=== PATIENT | male | born 1970 | race Caucasian/White ===

== ENCOUNTER 2016-11-24 03:50 | Inpatient (IN) | payer MEDICAID, OTHER ==
--- NOTE | 2016-11-24 04:22 | ED ---
Psych HPI - General Source: patient, police, EMS Mode of arrival: EMS - History of Present Illness MD Complaint: suicidal ideation, other -: hour(s) Associated Psychiatric Symptoms: depression, suicidal ideation <Rashawn Caraballo - Last Filed: 11/24/16 04:19> <Yadi Engel - Last Filed: 11/24/16 11:08> - General Chief Complaint: Psychiatric Symptoms Stated Complaint: Mental Health Time Seen by Provider: 11/24/16 04:01 - History of Present Illness Initial Comments: This patient is a 46-year-old man brought in in police custody. Most of the history is from the officers as the patient is declining to provide history. Police were called to the scene, reportedly by the patient's who told them that he had taken some pills tonight. The patient did report being depressed and having some suicidal ideation. The patient did state that he hopes the police would do it for him. He is otherwise not providing any history (Rashawn Caraballo) Review of Systems ROS Other: All systems not noted in ROS Statement are negative. Limitations: ROS unobtainable due to patients medical condition <Rashawn Caraballo - Last Filed: 11/24/16 04:19> ROS Other: All systems not noted in ROS Statement are negative. <Yadi Engel - Last Filed: 11/24/16 11:08> ROS Statement: Those systems with pertinent positive or pertinent negative responses have been documented in the HPI. Past Medical History History of Any Multi-Drug Resistant Organisms: None Reported Past Psychological History: Depression Smoking Status: Current every day smoker Past Alcohol Use History: Daily Past Drug Use History: Methamphetamine <Rashawn Caraballo - Last Filed: 11/24/16 04:19> General Exam General appearance: alert, in no apparent distress Head exam: Present: atraumatic, normocephalic Eye exam: Present: normal appearance. Absent: scleral icterus, conjunctival injection Respiratory exam: Present: normal lung sounds bilaterally. Absent: respiratory distress, wheezes, rales, rhonchi, stridor Cardiovascular Exam: Present: regular rate, normal rhythm, normal heart sounds. Absent: systolic murmur, diastolic murmur, rubs, gallop GI/Abdominal exam: Present: soft. Absent: distended, tenderness, guarding, rebound Extremities exam: Present: normal inspection, normal capillary refill. Absent: pedal edema, calf tenderness Back exam: Present: normal inspection. Absent: CVA tenderness (R), CVA tenderness (L) Neurological exam: Present: alert. Absent: motor sensory deficit Skin exam: Present: warm, dry, intact, normal color. Absent: rash <Rashawn Caraballo - Last Filed: 11/24/16 04:19> Course <Rashawn Caraballo - Last Filed: 11/24/16 04:19> <Yadi Engel - Last Filed: 11/24/16 11:08> Vital Signs 11/24/16 03:59 Temperature 97 F L Pulse Rate 120 H Respiratory 20 Rate Blood Pressure 160/109 O2 Sat by Pulse 98 Oximetry At term 10 AM he was brought to my attention that patient needs side for the admission and has sort was done in the ER after that patient be transferred to the inpatient psych facility at at our hospital (Yadi Engel) Medical Decision Making - Lab Data Result diagrams: 11/24/16 04:45 11/24/16 04:45 <Yadi Engel - Last Filed: 11/24/16 11:08> - Lab Data Lab Results 11/24/16 11/24/16 11/24/16 Range/Units 04:45 04:45 06:05 WBC 7.9 (3.8-10.6) k/uL RBC 4.53 (4.30-5.90) m/uL Hgb 14.7 (13.0-17.5) gm/dL Hct 44.7 (39.0-53.0) % MCV 98.8 (80.0-100.0) fL MCH 32.4 (25.0-35.0) pg MCHC 32.8 (31.0-37.0) g/dL RDW 13.1 (11.5-15.5) % Plt Count 331 (150-450) k/uL Neutrophils % 54 % Lymphocytes % 32 % Monocytes % 5 % Eosinophils % 5 % Basophils % 1 % Neutrophils # 4.3 (1.3-7.7) k/uL Lymphocytes # 2.5 (1.0-4.8) k/uL Monocytes # 0.4 (0-1.0) k/uL Eosinophils # 0.4 (0-0.7) k/uL Basophils # 0.1 (0-0.2) k/uL Sodium 142 (137-145) mmol/L Potassium 4.0 (3.5-5.1) mmol/L Chloride 109 H (98-107) mmol/L Carbon Dioxide 17 L (22-30) mmol/L Anion Gap 16 mmol/L BUN 14 (9-20) mg/dL Creatinine 1.20 (0.66-1.25) mg/dL Est GFR (MDRD) Af Amer >60 (>60 ml/min/1.73 sqM) Est GFR (MDRD) Non-Af >60 (>60 ml/min/1.73 sqM) Glucose 74 (74-99) mg/dL Calcium 9.4 (8.4-10.2) mg/dL Total Bilirubin 0.4 (0.2-1.3) mg/dL AST 34 (17-59) U/L ALT 35 (21-72) U/L Alkaline Phosphatase 66 (38-126) U/L Total Protein 6.9 (6.3-8.2) g/dL Albumin 4.1 (3.5-5.0) g/dL Salicylates <1.0 mg/dL Urine Opiates Screen Not Detected (NotDetected) Ur Oxycodone Screen Not Detected (NotDetected) Urine Methadone Screen Not Detected (NotDetected) Ur Propoxyphene Screen Not Detected (NotDetected) Acetaminophen <10.0 ug/mL Ur Barbiturates Screen Not Detected (NotDetected) U Tricyclic Antidepress Not Detected (NotDetected) Ur Phencyclidine Scrn Not Detected (NotDetected) Ur Amphetamines Screen Not Detected (NotDetected) U Methamphetamines Scrn Not Detected (NotDetected) U Benzodiazepines Scrn Not Detected (NotDetected) Urine Cocaine Screen Detected H (NotDetected) U Marijuana (THC) Screen Detected H (NotDetected) Serum Alcohol 146 mg/dL Disposition <Rashawn Caraballo - Last Filed: 11/24/16 04:19> <Yadi Engel - Last Filed: 11/24/16 11:08> Clinical Impression: Suicidal ideation, Attempted suicide Disposition: TRANSFER TO PSYCH HOSP/UNIT Condition: Fair
[2016-11-24 05:12] LABS: ALT 35 U/L (21-72); AST 34 U/L (17-59); Acetaminophen <10.0 ug/mL; Alkaline Phosphatase 66 U/L (38-126); Anion Gap 16 mmol/L; Blood Urea Nitrogen 14 mg/dL (9-20); Calcium 9.4 mg/dL (8.4-10.2); Carbon Dioxide 17 mmol/L (22-30); Chloride 109 mmol/L (98-107); Glucose 74 mg/dL (74-99); Non-African American GFR(MDRD) >60 (>60 ml/min/1.73 sqM); Salicylate <1.0 mg/dL; Sodium 142 mmol/L (137-145); Total Bilirubin 0.4 mg/dL (0.2-1.3); Total Protein 6.9 g/dL (6.3-8.2)
[2016-11-24 05:14] LABS: Alcohol 146 mg/dL
[2016-11-24 05:35] LABS: Basophils # (A) 0.1 k/uL (0-0.2); Basophils % (A) 1 %; CH 31.7; CHCM 32.2; Eosinophils # (A) 0.4 k/uL (0-0.7); Eosinophils % (A) 5 %; HCT 44.7 % (39.0-53.0); HDW 2.26; HGB 14.7 gm/dL (13.0-17.5); Luc # (Auto) 0.26; Luc % (Auto) 3; Lymphocytes # (A) 2.5 k/uL (1.0-4.8); Lymphocytes % (A) 32 %; MCH 32.4 pg (25.0-35.0); MCHC 32.8 g/dL (31.0-37.0); MCV 98.8 fL (80.0-100.0); Mean Platelet Volume 7.4; Monocytes # (A) 0.4 k/uL (0-1.0); Monocytes % (A) 5 %; Neutrophils # (A) 4.3 k/uL (1.3-7.7); Neutrophils % (A) 54 %; RBC 4.53 m/uL (4.30-5.90); RDW 13.1 % (11.5-15.5); WBC 7.9 k/uL (3.8-10.6); WBC (Perox) 8.11
[2016-11-24] MEDS ORDERED: MAG HYDROX/AL HYDROX/SIMETH 30 ML CUP PO PRN (11:39)
[2016-11-24] MEDS ORDERED: ACETAMINOPHEN TAB 325 MG TAB PO PRN (11:39)
[2016-11-24] MEDS ORDERED: MAGNESIUM HYDROXIDE 2,400 MG/10 ML CUP PO PRN (11:39)
[2016-11-24] MEDS ORDERED: ZIPRASIDONE 20 MG VIAL IM PRN (11:39)
[2016-11-24] MEDS ORDERED: LORazepam 2 MG/ML SYRINGE IM PRN (11:41)
[2016-11-24 11:50] LABS: Appearance,Urine Clear (Clear); Bilirubin,Urine Negative (Negative); Glucose,Urine (UA) Negative (Negative); Ketones,Urine Negative (Negative); Leukocyte Esterase,Urine Negative (Negative); Nitrite,Urine Negative (Negative); Protein,Urine Negative (Negative); Specific Gravity,Urine 1.002 (1.001-1.035); UA Billing (MACRO vs. MICRO) CHEM; Urobilinogen,Urine <2.0 mg/dL (<2.0)
[2016-11-24] MEDS: NICOTINE 14MG/24HR PATCH TRANSDERM SCH (12:12)
[2016-11-24] MEDS: LORazepam 1 MG TAB PO PRN (12:12)
[2016-11-25] MEDS: NICOTINE 14MG/24HR PATCH TRANSDERM SCH (09:27)
[2016-11-25] MEDS: LORazepam 1 MG TAB PO PRN (09:27)
[2016-11-25] MEDS: buPROPion SR 100 MG TABLET.ER PO SCH (10:21)
--- NOTE | 2016-11-25 14:15 | P.CONS ---
History of Present Illness - Reason for Consult Consult date: 11/25/16 medical management - History of Present Illness This is a 46-year-old male. He does not have a primary care physician. He does not have a past medical history other than exploratory laparotomy that was done with appendectomy, tobacco use and dependence, alcohol abuse, marijuana and cocaine abuse. Patient states he has been suicidal and took a bunch of pills he wasn't sure what they were but thought they were ALLERGY pills and aspirin. His daughter was there and called 911 and he was brought into [facility] emergency center for evaluation. He states he has been depressed because of drugs, alcohol and poor decisions that he's made. He apparently is drinking 8-10 beers every day and has been doing this for at least a couple years. He states he is also using marijuana and cocaine on a daily basis. Urine drug screen was positive for cocaine and marijuana. Serum alcohol level was 146. Acetaminophen less than 10 and salicylate level less than 1. TSH 0.892. Patient has been admitted to the mental health unit. Patient is complaining of skin irritation on his chest abdomen and upper back which is exacerbated when he sweats a lot. Review of Systems All systems: negative Constitutional: Denies chills, Denies fever Eyes: denies blurred vision, denies pain Ears, nose, mouth and throat: Denies headache, Denies sore throat Cardiovascular: Denies chest pain, Denies shortness of breath Respiratory: Denies cough Gastrointestinal: Denies abdominal pain, Denies diarrhea, Denies nausea, Denies vomiting Musculoskeletal: Denies myalgias Integumentary: Reports rash, Denies pruritus Neurological: Denies numbness, Denies weakness Psychiatric: Reports depression, Reports hopelessness, Reports suicidal ideation , Denies anxiety Endocrine: Denies fatigue, Denies weight change Past Medical History History of Any Multi-Drug Resistant Organisms: None Reported Past Surgical History: Appendectomy Additional Past Surgical History / Comment(s): expiratory laparotomy Past Psychological History: Depression Smoking Status: Current every day smoker Past Alcohol Use History: Daily Additional Past Alcohol Use History / Comment(s): Patient is a smoker one pack per day for 20 years. He drinks alcohol 8-10 beers per day for last couple years. He uses marijuana and cocaine on a daily basis. He is and has 2 children with no major medical problems. Past Drug Use History: Methamphetamine - Past Family History Father Additional Family Medical History / Comment(s): Father in his 50s from suicide. Mother Additional Family Medical History / Comment(s): mother is alive at age 72 and is residing in an extended care facility. He does not know her medical problems. Brother(s) Additional Family Medical History / Comment(s): Patient had 1 brother that from a motor vehicle accident. Patient has 2 sisters with no major medical problems. Medications and Allergies Home Medications Medication Instructions Recorded Confirmed Type No Known Home Medications [No 11/24/16 11/24/16 History Known Home Medications] Allergies Allergy/AdvReac Type Severity Reaction Status Date / Time No Known Allergies Allergy Unverified 11/24/16 11:29 Physical Exam Vitals: Vital Signs Temp Pulse Resp BP 11/25/16 06:32 98.4 F 73 16 136/72 Gen: This is a 46-year-old male. He is a disheveled appearance and cooperative. HEENT: Head is atraumatic, normocephalic. Pupils equal, round. Sclerae is anicteric. NECK: Supple. No JVD. No lymphadenopathy. No thyromegaly. LUNGS: Clear to auscultation. No wheezes or rhonchi. No intercostal retractions. HEART: Regular rate and rhythm. No murmur. ABDOMEN: Soft. Bowel sounds are present. No masses. No tenderness. EXTREMITIES: No pedal edema. No calf tenderness. SKIN: patchy redness noted over his chest, abdomen and upper back. NEUROLOGICAL: Patient is awake, alert and oriented x3. Cranial nerves 2 through 12 are grossly intact. Results CBC & Chem 7: 11/24/16 04:45 11/24/16 04:45 Assessment and Plan Plan: 1. Depression with suicidal ideation. Patient admitted to the mental health unit. Continue current plan of care. 2. Alcohol abuse. Continue as in #1. Continue Ativan protocol. 3. Polysubstance abuse with marijuana and cocaine. Continue as in #1. 4. Tobacco use and dependence. Continue nicotine patch. Impression and plan of care have been directed as dictated by the signing physician. Olivia Birmingham nurse practitioner acting as scribe for signing physician. Time with Patient: Greater than 30
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
[2016-11-26] MEDS: NICOTINE 14MG/24HR PATCH TRANSDERM SCH (08:50)
[2016-11-26] MEDS: buPROPion SR 100 MG TABLET.ER PO SCH (08:50)
--- NOTE | 2016-11-26 11:41 | P.PN ---
Progress Note - Text Interval history: The patient is found in the hallway he follows me to an interview room. He was admitted over the weekend for acute symptoms of anxiety and depression.Patient is still feeling guilty regarding past mistakes and his extensive history of SA ,he stated that he has been not honest with regarding his cocaine use ,patient is reluctant to tell about it "She is stressed out by my daughter problem ,I do not want her to be upset",patient is still endorsing some alcohol withdrawal symptoms:tremors and sweating,felt restless last night and had Ativan .He started to participate in groups and more visible in milieu CIWA :3 ,Vitals :stable Mental status exam: The patient's a thin male he seated calmly he is dressed in his own clothing. Unkept ,disheveled Eye contact is appropriate. He reports a depressed and anxious mood affect is mildly anxious. He is cooperative. He reports some hopelessness thinking ,denies suicidal or homicidal ideation intent or plan. He feels safe here in the hospital. He is endorsing no auditory or visual hallucinations. He endorses suspicious thoughts that someone will tell his about "MY PAST MISTAKES" Insight and judgment limited. He demonstrates no verbal or physical aggressiveness. No tremor is noted no abnormal involuntary movements observed. Affect is bland throughout the session. Plan: The patient will be continued on his current psychotropic medications , will change Seroquel XR to regular form ,patient does not have insurance. We will monitor him for safety and for alcohol withdrawal symptoms. He is encouraged participate in groups. We discussed having him participate in inpatient chemical dependency treatment but he is reluctant t
[2016-11-26] MEDS ORDERED: QUEtiapine 100 MG TAB PO SCH (21:00)
[2016-11-27] MEDS: buPROPion SR 100 MG TABLET.ER PO SCH (08:32)
[2016-11-27] MEDS: NICOTINE 14MG/24HR PATCH TRANSDERM SCH (08:32)
--- NOTE | 2016-11-27 13:47 | P.PN ---
Progress Note - Text Interval history: The patient is found in the hallway he follows me to an interview room. .Patient is still feeling guilty regarding past mistakes and his extensive history of SA ,he stated that he called his last night and " I TOLD HER ABOUT MY COCAINE AND MJ ABUSE ,I TOLD HER THAT I WAS LYING TO HER FOR YEARS", patient endorses lot of nightmares last night ,he reports that he is feeling nervous regarding upcoming family meeting CIWA :0 ,Vitals :stable Mental status exam: The patient's a thin male he seated calmly he is dressed in his own clothing. Unkept ,disheveled Eye contact is appropriate. He reports a depressed and anxious mood affect is mildly anxious. He is cooperative. ,denies suicidal or homicidal ideation intent or plan. He feels safe here in the hospital. He is endorsing no auditory or visual hallucinations. He endorses lot of guilt feeling Insight and judgment limited. He demonstrates no verbal or physical aggressiveness. No tremor is noted no abnormal involuntary movements observed. Affect is bland throughout the session. Plan: Increase Seroquel ,continue Wellbutrin ,same dose, He is encouraged participate in groups. We discussed having him participate in inpatient chemical dependency treatment but patient refused saying that he will attend NA meetings and he will have sponsor
[2016-11-27] MEDS ORDERED: QUEtiapine 100 MG TAB PO SCH (21:00)
[2016-11-28 06:39] VITALS: BP 108/66; PULSE 66; RESP 18; TEMP 97.5
[2016-11-28] MEDS: buPROPion SR 100 MG TABLET.ER PO SCH (08:54)
[2016-11-28] MEDS: NICOTINE 14MG/24HR PATCH TRANSDERM SCH (09:19)
--- NOTE | 2016-11-29 10:35 | DS ---
DATE OF ADMISSION: 11/24/2016 DATE OF DISCHARGE: 11/28/2016 CONSULT PHYSICIAN: Archana. CONSULTING PROVIDER: Olivia Birmingham. CONSULT REASON: Medical management. Do you want consulting provider notified? Yes. DISCHARGE DIAGNOSES: 1. Depressive disorder, unspecified; rule out substance induced mood disorder. 2. Cocaine abuse, cocaine use disorder. 3. Alcohol use disorder. 4. Cannabis use disorder. BRIEF SUMMARY OF THE ADMISSION NOTE: Please refer to my initial psychiatric and physical examination. Patient was initially uncooperative on the first day; however, when I saw him the next day he was more cooperative, compliant and he talked in detail about his substance abuse issue. HOSPITAL COURSE: The patient was admitted to the mental health unit initially on petition filed by the police lieutenant precinct and clinical certificate but he did sign in voluntarily. Once he was admitted to the mental health unit, I did review all his lab workup and I did discuss with him his extensive history of substance abuse. His alcohol level when he came, it was 146. His urine was positive for marijuana and cocaine. Patient initially was ruminating about all his mistakes and especially he has been telling his that he just used alcohol and cannabis. I did discuss with him the negative impact of his addiction on his physical and mental health and patient did verbalize understanding. I did discuss the option of inpatient chemical dependency rehab; however, he stated that he has to work, but he will be willing to go to outpatient treatment. In addition, he will go to ( ) meeting. He did agree to start Wellbutrin for depression and I did add Seroquel to help his anxiety and his trouble sleeping at night and I gradually titrated the Seroquel to 150 mg at bedtime. Initially he was not participating in any group, but after 2 days he started taking care of his hygiene and grooming and he was attending most of the group. 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 According to the family meeting, social services assistant stated that the meeting was very productive as patient and talked about his substance abuse. Patient stated that he was living a lie as he was denying any drug use, but stated that she was aware about this. Patient stated that he is motivated for sobriety, but does not want any inpatient rehab. His vital signs at the time of the discharge 97.5 temp, pulse 66, respiration 18, blood pressure 108/66. CIWA was 0 over and the last 48 hours. Last nursing stated that the patient has been cooperative, appropriate, denied any hallucinations, denied any delusion. Denied any suicidal or homicidal ideation. Attending most of the group. MENTAL STATUS EXAMINATION: At the time of the discharge, patient is alert, he gives good eye contact. Hygiene and grooming much better than the first day of the admission. Speech is spontaneous at times circumstantial but easy to redirect. He is reporting no homicidal or suicidal ideation, intent or plan. He denied any depressive symptoms. There is no evidence of hypomania or tana. There is no evidence of psychosis. He denied any hallucination, idea of reference or paranoia. His insight regarding his addiction is improving. Cognitive ability has remained the same after the hospitalization. There is no verbal or physical aggression observed during hospitalization. PLAN: 1. Patient will be discharged from the mental health unit today. 2. Patient was instructed to abstain from alcohol, marijuana and cocaine. 3. Patient was given referral to outpatient dual diagnosis. He has an appointment at [facility] on December 03 at 10:30. 4. Patient was given one-month supply for Wellbutrin 100 mg daily and Seroquel 150 mg at bedtime. 5. Also, I did discuss with him smoking cessation and I gave him 7-day supply for nicotine patch 6. There is no eminent safety risk and he is appropriate for transition to outpatient care. He is instructed to return to the emergency room if any acute safety concerns. Patient's condition at discharge is stable.
== END 2016-11-28 14:28 | disposition home or self-care (01) | DRG 885 ==
LOC: EC 03:50 → 3MHU 11:24
PROVIDERS: ADMIT Psychiatry & Neurology Psychiatry; ATTEND Psychiatry & Neurology Psychiatry
PROC: HZ2ZZZZ Detoxification Services for Substance Abuse Treatment (ICD-10-PCS; principal; 2016-11-24)
DX: F33.2 Major depressive disorder, recurrent severe without psychotic features (principal); R45.851 Suicidal ideations; F10.239 Alcohol dependence with withdrawal, unspecified; F17.200 Nicotine dependence, unspecified, uncomplicated; F41.9 Anxiety disorder, unspecified; F19.14 Other psychoactive substance abuse with psychoactive substance-induced mood disorder; R63.4 Abnormal weight loss; F51.5 Nightmare disorder; G47.9 Sleep disorder, unspecified; Z90.49 Acquired absence of other specified parts of digestive tract; Z81.8 Family history of other mental and behavioral disorders; Z81.1 Family history of alcohol abuse and dependence; Z91.5 Personal history of self-harm; Z65.3 Problems related to other legal circumstances; Z71.41 Alcohol abuse counseling and surveillance of alcoholic; Z71.6 Tobacco abuse counseling; Z71.51 Drug abuse counseling and surveillance of drug abuser; Z62.810 Personal history of physical and sexual abuse in childhood; Z63.79 Other stressful life events affecting family and household; Y90.6 Blood alcohol level of 120-199 mg/100 ml
CPT/HCPCS: 36415; 80053; 80306; 80320; 81003; 82075; 83520; 84443; 85025; 99285

== ENCOUNTER 2018-05-18 11:46 | Emergency (ER) | payer MEDICAID, OTHER ==
[2018-05-18 11:57] VITALS: BP 124/77; PULSE 104; RESP 20; TEMP 98.1
--- NOTE | 2018-05-18 12:45 | ED ---
General Adult HPI - General Chief complaint: Wound/Laceration Stated complaint: [facility]-Arm Lac Time Seen by Provider: 05/18/18 12:16 Source: patient, RN notes reviewed Mode of arrival: ambulatory Limitations: no limitations - History of Present Illness Initial comments: 47-year-old male presents to the emergency department for a chief complaint of laceration occurring about 2 hours ago. Patient states he was at work when he was throwing a toilet in a dumpster when it broke and cut him. Patient denies any other injuries. Patient states he is up-to-date on tetanus as of 4 years ago. Patient denies any weakness in the left upper extremity. Patient states he just wanted to make sure was cleaned out well and thought it might need stitches. Patient has no other complaints at this time including shortness of breath, chest pain, abdominal pain, nausea or vomiting, headache, or visual changes. - Related Data Previous Rx's Medication Instructions Recorded Nicotine 14Mg/24Hr Patch [Habitrol] 1 patch TRANSDERM DAILY 7 Days 11/28/16 patch QUEtiapine [SEROquel] 150 mg PO HS 30 Days tab 11/28/16 buPROPion SR [Wellbutrin SR] 100 mg PO DAILY 30 Days tablet.er 11/28/16 Allergies Allergy/AdvReac Type Severity Reaction Status Date / Time No Known Allergies Allergy Verified 05/18/18 11:57 Review of Systems ROS Statement: Those systems with pertinent positive or pertinent negative responses have been documented in the HPI. ROS Other: All systems not noted in ROS Statement are negative. Past Medical History Past Medical History: No Reported History History of Any Multi-Drug Resistant Organisms: None Reported Past Surgical History: Appendectomy Additional Past Surgical History / Comment(s): exploratory laparotomy Past Psychological History: Depression Smoking Status: Current every day smoker Past Alcohol Use History: Daily Past Drug Use History: Methamphetamine - Past Family History Father Additional Family Medical History / Comment(s): Father in his 50s from suicide. Mother Additional Family Medical History / Comment(s): mother is alive at age 72 and is residing in an extended care facility. He does not know her medical problems. Brother(s) Additional Family Medical History / Comment(s): Patient had 1 brother that from a motor vehicle accident. Patient has 2 sisters with no major medical problems. General Exam Limitations: no limitations General appearance: alert, in no apparent distress Head exam: Present: atraumatic, normocephalic, normal inspection Eye exam: Present: normal appearance. Absent: scleral icterus, conjunctival injection ENT exam: Present: normal exam, mucous membranes moist Neck exam: Present: normal inspection, full ROM. Absent: tenderness, meningismus, lymphadenopathy Respiratory exam: Present: normal lung sounds bilaterally. Absent: respiratory distress, wheezes, rales, rhonchi, stridor Cardiovascular Exam: Present: regular rate, normal rhythm, normal heart sounds. Absent: systolic murmur, diastolic murmur, rubs, gallop, clicks Extremities exam: Present: full ROM (Full range motion of the left upper extremity including elbow wrist and digits), normal capillary refill (Capillary refill less than 2 seconds and radial pulse 2+ and left upper extremity), other (Patient has a 4 cm linear laceration extending into the subcutaneous tissue on the volar left forearm. No evidence of foreign bodies noted. No spreading or streaking redness or signs of infection.). Absent: tenderness Neurological exam: Present: alert, oriented X3, CN II-XII intact Psychiatric exam: Present: normal affect, normal mood Course Vital Signs 05/18/18 11:55 Temperature 98.1 F Pulse Rate 104 H Respiratory 20 Rate Blood Pressure 124/77 O2 Sat by Pulse 97 Oximetry Procedures - Laceration Laceration #1 Consent Obtained: verbal consent Indication: laceration Site: other (left volar forearm) Depth: simple, single layer Anesthetic Used: lidocaine 1% Anesthesia Technique: local infiltration Amount (mls): 6 Type of Sutures: other (ethilon) Size of Sutures: 5-0 Number of Sutures: 7 Technique: simple, interrupted Patient Tolerated Procedure: well, no complications Medical Decision Making - Medical Decision Making Laceration about 4 cm total left oral lower forearm. Full range motion of the hand. Neurovascular intact. Tetanus is up-to-date as of 4 years ago. X-ray shows no foreign bodies. Wound was irrigated thoroughly with a liter of sterile water and then cleaned with iodine. Subcutaneous tissue was trimmed away to prevent any rude tissue. All deep structures intact and no foreign bodies evident on inspection. Wound was sutured with 7 simple interrupted sutures. This was well tolerated. Patient will monitor for signs of infection which were discussed with him. He will return in 7-10 days to have sutures removed. He will follow up with primary care. Disposition Clinical Impression: Laceration Disposition: HOME SELF-CARE Condition: Good Instructions: Care For Your Stitches (ED), Laceration (ED) Additional Instructions: Please follow up with primary care in 1-2 days for a wound recheck. Please return to the emergency department if you have any worsening symptoms. Monitor for any spreading or streaking redness or signs of infection. Return in 7-10 days to have sutures removed. Is patient prescribed a controlled substance at d/c from ED?: No Referrals: Humza Mchugh MD [STAFF PHYSICIAN] - 1-2 days Time of Disposition: 13:45
[2018-05-18] MEDS ORDERED: LIDOCAINE 1% INJ 10MG/ML (20 ML MDV) SQ ONE (12:47)
--- NOTE | 2018-05-18 12:57 | XR ---
EXAMINATION TYPE: XR forearm LT DATE OF EXAM: 05/18/2018 COMPARISON: NONE HISTORY: 47-year-old male left midforearm laceration with broken porcelain, pain TECHNIQUE: 2 views FINDINGS: There is soft tissue laceration along the ulnar aspect of the midforearm. No retained radiopaque fore ign body or underlying acute fracture is seen. The wrist and elbow articulations appear grossly intac t. Tiny curvilinear density at the medial margin of the radiocapitellar joint at the elbow could repr esent a tiny loose body. IMPRESSION: Soft tissue laceration along the ulnar aspect of the midforearm. No retained radiopaque foreign body or underlying acute osseous abnormality seen.
== END 2018-05-18 13:54 | disposition home or self-care (01) ==
LOC: EC 11:46
DX: S51.812A Laceration without foreign body of left forearm, initial encounter (principal); F17.200 Nicotine dependence, unspecified, uncomplicated; W45.8XXA Other foreign body or object entering through skin, initial encounter; Y93.89 Activity, other specified; Y92.69 Other specified industrial and construction area as the place of occurrence of the external cause
CPT/HCPCS: 73090; 99283; 12002; J2001

== ENCOUNTER 2023-08-13 13:37 | Emergency (ER) | payer OTHER ==
--- NOTE | 2023-08-13 14:02 | ED ---
General Adult HPI - General Chief complaint: Extremity Injury, Upper Stated complaint: right thumb laceration-[facility] Time Seen by Provider: 08/13/23 13:53 Source: patient, EMS Mode of arrival: EMS - History of Present Illness Initial comments: Dictation was produced using [employer] management dictation software. please excuse any grammatical, word or spelling errors. 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 Patient initially went to [facility] where he had x-rays performed ultimately was sent here because they do not have any orthopedic hand coverage there. They placed his finger in a splint and provide patient with tetanus. Patient reports that he did attempt to do a digital block however patient still complaining of pain to the right thumb. He did suffer some minor superficial lacerations to the left digits The ROS documented in this emergency department record has been reviewed and confirmed by me. Those systems with pertinent positive or negative responses have been documented in the HPI. All other systems are other negative and/or noncontributory. - Related Data Previous Rx's Medication Instructions Recorded Nicotine 14Mg/24Hr Patch [Habitrol] 1 patch TRANSDERM DAILY 7 Days 11/28/16 patch QUEtiapine [SEROquel] 150 mg PO HS 30 Days tab 11/28/16 buPROPion SR [Wellbutrin SR] 100 mg PO DAILY 30 Days tablet.er 11/28/16 Cephalexin [Keflex] 500 mg PO Q6HR 5 Days #20 cap 08/13/23 HYDROcodone/APAP 5-325MG [Deep Run 1 tab PO Q6HR PRN 3 Days #12 tab 08/13/23 5-325] Allergies Allergy/AdvReac Type Severity Reaction Status Date / Time No Known Allergies Allergy Verified 05/18/18 11:57 Review of Systems ROS Statement: Those systems with pertinent positive or pertinent negative responses have been documented in the HPI. ROS Other: All systems not noted in ROS Statement are negative. Past Medical History Past Medical History: No Reported History History of Any Multi-Drug Resistant Organisms: None Reported Past Surgical History: Appendectomy Additional Past Surgical History / Comment(s): exploratory laparotomy Past Psychological History: Depression Past Alcohol Use History: Daily Past Drug Use History: Methamphetamine - Past Family History Father Additional Family Medical History / Comment(s): Father in his 50s from suicide. Mother Additional Family Medical History / Comment(s): mother is alive at age 72 and is residing in an extended care facility. He does not know her medical problems. Brother(s) Additional Family Medical History / Comment(s): Patient had 1 brother that from a motor vehicle accident. Patient has 2 sisters with no major medical problems. General Exam - General Exam Comments Initial Comments: PHYSICAL EXAM: General Impression: Alert and oriented x3, not in acute distress HEENT: Normocephalic atraumatic, extra-ocular movements intact, pupils equal and reactive to light bilaterally, mucous membranes moist. Cardiovascular: Heart regular rate and rhythm Chest: Able to complete full sentences, no retractions, no tachypnea Musculoskeletal: Pulses present and equal in all extremities, no peripheral edema Motor: no focal deficits noted Neurological: CN II-XII grossly intact, no focal motor or sensory deficits noted Skin: Intact with no visualized rashes Psych: Normal affect and mood Right hand: Duration circumferentially around the distal right thumb just above the PIP joint, distal fingertip is lacerated just below the nail and dangling by some intact tissue Course Vital Signs 08/13/23 13:52 Temperature 98.2 F Pulse Rate 82 Respiratory 18 Rate Blood Pressure 136/86 O2 Sat by Pulse 99 Oximetry Procedures - Laceration Laceration #1 Consent Obtained: verbal consent, emergent situation Indication: laceration, other (finger tip traumatic amputation) Description: irregular Depth: [id number] Anesthetic Used: lidocaine 1% Anesthesia Technique: local infiltration, nerve block Pre-repair: wound explored, irrigated extensively Type of Sutures: nylon Size of Sutures: 3-0 Technique: simple, interrupted Patient Tolerated Procedure: well Medical Decision Making - Medical Decision Making Was pt. sent in by a medical professional or institution (, PA, HOUSING COORDINATOR, urgent care, hospital, or fci...) When possible be specific @ -No Did you speak to anyone other than the patient for history (EMS, parent, family, police, friend...)? What history was obtained from this source @ -No Did you review nursing and triage notes (agree or disagree)? Why? @ -I reviewed and agree with nursing and triage notes Were old charts reviewed (outside hosp., previous admission, EMS record, old EKG, old radiological studies, urgent care reports/EKG's, fci records)? Report findings @ -No old charts were reviewed Differential Diagnosis (chest pain, altered mental status, abdominal pain women, abdominal pain men, vaginal bleeding, musculoskeletal, weakness, fever, dyspnea, syncope, headache, dizziness, GI bleed, back pain, seizure, CVA, palpatations, mental health)? @ -not applicable EKG interpreted by me (3pts min.). @ -None done X-rays interpreted by me (1pt min.). @ -X-ray shows comminuted right distal tip fracture with soft tissue defect CT interpreted by me (1pt min.). @ -None done U/S interpreted by me (1pt. min.). @ -None done What testing was considered but not performed or refused? (CT, X-rays, U/S, labs)? Why? @ -None What meds were considered but not given or refused? Why? @ -None Did you discuss the management of the patient with other professionals (professionals i.e. , PA, HOUSING COORDINATOR, lab, RT, psych nurse, social sciences department chair, weights and measures inspector, teacher, credit officer, case management associate)? Give summary @ -Case discussed with Rosario Lunsford who works with orthopedic surgery she spoke with her attending, Dr. Clark states that we should suture the amputated tip to the finger and for patient to follow-up in the hand clinic Was smoking cessation discussed for >3mins.? @ -No Was critical care preformed (if so, how long)? @ -No Were there social determinants of health that impacted care today? How? (Homelessness, low income, unemployed, alcoholism, drug addiction, transportation, low edu. Level, literacy, decrease access to med. care, retirement, rehab)? @ -No Was there de-escalation of care discussed even if they declined (Discuss DNR or withdrawal of care, Hospice)? DNR status @ -No What co-morbidities impacted this encounter? (DM, HTN, Smoking, COPD, CAD, Cancer, CVA, ARF, Chemo, Hep., AIDS, mental health diagnosis, sleep apnea, morbid obesity)? @ -None Was patient admitted / discharged? Hospital course, mention meds given and route, prescriptions, significant lab abnormalities, going to OR and other pertinent info. @ -53-year-old male sent here from [facility] for trichomoniasis amputation of the distal right thumb. Patient has comminuted fracture. Amputated fingertip segment was sewn onto the proximal segment. Patient likely will require amputation revision however per request by orthopedic surgery they requested that laceration be performed to see if there is salvageable tissue. Patient received tetanus prior to hospital arrival. He feels improved after digital nerve block. Patient will be discharged with prescription for antibiotics and analgesics. Undiagnosed new problem with uncertain prognosis? @ -No Drug Therapy requiring intensive monitoring for toxicity (Heparin, Nitro, Insulin, Cardizem)? @ -No Were any procedures done? @ -No Diagnosis/symptom? Acute, or Chronic, or Acute on Chronic? Uncomplicated (without systemic symptoms) or Complicated (systemic symptoms)? @ -Traumatic right distal tip amputation Side effects of treatment? @ -No Exacerbation, Progression, or Severe Exacerbation? @ -No Poses a threat to life or bodily function? How? (Chest pain, [place], [place], pneumonia, PE, COPD, DKA, ARF, appy, cholecystitis, CVA, Diverticulitis, Homicidal, Suicidal, threat to staff... and all critical care pts) @ -yes Disposition Clinical Impression: Traumatic amputation of finger Disposition: HOME SELF-CARE Condition: Fair Instructions (If sedation given, give patient instructions): Finger Amputation (ED) Prescriptions: Cephalexin [Keflex] 500 mg PO Q6HR 5 Days #20 cap HYDROcodone/APAP 5-325MG [Deep Run 5-325] 1 tab PO Q6HR PRN 3 Days #12 tab PRN Reason: Severe Pain Is patient prescribed a controlled substance at d/c from ED?: Yes If prescribed controlled substance>3 days was MAPS reviewed?: Prescribed <3 Days Referrals: Cordelia Clark DO [Doctor of Osteopathic Medicine] - 1-2 days Time of Disposition: 14:52
[2023-08-13 14:08] VITALS: BP 136/86; PULSE 82; RESP 18; TEMP 98.2
[2023-08-13] MEDS ORDERED: LIDOCAINE 1% INJ 10MG/ML (20 ML MDV) SQ ONE (14:17)
--- NOTE | 2023-08-13 14:48 | XR ---
EXAMINATION TYPE: XR finger RT DATE OF EXAM: 08/13/2023 COMPARISON: None HISTORY: Traumatic right thumb laceration TECHNIQUE: 3 view right thumb FINDINGS: There is a comminuted fracture with angulated displaced fracture fragments of the distal th umb. Extensive soft tissue injury is present. IMPRESSION: 1. Comminuted fracture distal phalanx right thumb with extensive soft tissue injury
== END 2023-08-13 15:14 | disposition home or self-care (01) ==
LOC: EC 13:37
DX: S61.011A Laceration without foreign body of right thumb without damage to nail, initial encounter (principal); F15.90 Other stimulant use, unspecified, uncomplicated; Z86.59 Personal history of other mental and behavioral disorders; W22.09XA Striking against other stationary object, initial encounter
CPT/HCPCS: 73140; 12001; 99284; J2001